=== PATIENT | male | born 1995 | race Caucasian/White ===

== ENCOUNTER 2017-11-17 12:41 | Emergency (ER) | payer OTHER ==
[~2017-11-17] VITALS: Ht 170.2 cm; Wt 84.1 kg
[2017-11-17 12:49] VITALS: BP 141/91; PULSE 98; TEMP 99.2
== END 2017-11-17 14:21 | disposition home or self-care (01) ==
LOC: COL.ER 12:41
DX: J40 Bronchitis, not specified as acute or chronic (principal); F17.200 Nicotine dependence, unspecified, uncomplicated; F17.290 Nicotine dependence, other tobacco product, uncomplicated